=== PATIENT | female | born 1955 | race Caucasian/White ===

== ENCOUNTER 2020-04-21 11:43 | Emergency (ER) | payer MEDICARE, OTHER ==
[2020-04-21 20:01] LABS: SARS-CoV-2 MS2 Positive; SARS-CoV-2 N Gene Negative; SARS-CoV-2 S Gene Negative; SARS-CoV-2 by NAA Not Detected (NotDetected); SARS-CoV-2 orf1ab Negative
== END 2020-04-21 12:20 | disposition home or self-care (01) ==
LOC: ERS 11:43
DX: Z20.828 Contact with and (suspected) exposure to other viral communicable diseases (principal); F41.9 Anxiety disorder, unspecified
CPT/HCPCS: 87635; 99283; U0003

== ENCOUNTER 2020-05-17 11:49 | Emergency (ER) | payer MEDICARE ==
[2020-05-17 18:28] LABS: SARS-CoV-2 MS2 Positive; SARS-CoV-2 N Gene Positive; SARS-CoV-2 S Gene Positive; SARS-CoV-2 by NAA DETECTED (NotDetected); SARS-CoV-2 orf1ab Positive
== END 2020-05-17 12:37 | disposition home or self-care (01) ==
LOC: ERS 11:49
DX: U07.1 COVID-19 (principal)
CPT/HCPCS: 99283; U0003; 87635

== ENCOUNTER 2022-07-28 16:45 | Emergency (ER) | payer MEDICARE, OTHER ==
[2022-07-28 17:48] LABS: #Eosinphils 0.1 thou/uL (0.0-0.7); #Lymphocytes 2.9 thou/uL (1.20-3.40); #Monocytes 0.6 thou/uL (0.11-0.59); %Basophils 0.5 % (0.0-1.0); %Lymphocytes 43.9 % (21.0-51.0); %Monocytes 8.4 % (0.0-10.0); %Neutrophils 45.2 % (42.0-75.0); Hemoglobin 11.9 g/dL (12.0-16.0); Mean Corpuscular HGB CONC 33.5 g/dL (32.0-36.0); Mean Corpuscular Volume 95.4 fl (78.0-98.0); Mean Platelet Volume 8.2 fL (7.4-10.4); Platelet Count 248 10x3/uL (130-400); Red Blood Cell (RBC) Count 3.72 mill/uL (4.20-5.40); White Blood Cell (WBC) Count 6.7 10x3/uL (4.8-10.8)
[2022-07-28 18:08] LABS: ALT (SGPT) 16 U/L (8-55); AST (SGOT) 20 U/L (5-34); Albumin 4.1 g/dL (3.4-4.8); Alkaline Phosphatase 87 U/L (40-110); Anion Gap 12 mmol/L (10-20); BUN (Urea Nitrogen) 14 mg/dL (9.8-20.1); Bilirubin, Total 0.4 mg/dL (0.2-1.2); Calc. Creatinine Clearance 0 mL/min (70-130); Calcium 9.4 mg/dL (7.8-10.44); Carbon Dioxide 25 mmol/L (23-31); Chloride 104 mmol/L (98-107); Estimated GFR 88; Globulin 3.1 g/dL (2.4-3.5); Glucose 101 mg/dL (80-115); Potassium 3.9 mmol/L (3.5-5.1); Protein, Total 7.2 g/dL (5.8-8.1); Sodium 137 mmol/L (136-145)
== END 2022-07-28 19:50 | disposition home or self-care (01) ==
LOC: ERS 16:45
DX: R60.9 Edema, unspecified (principal)
CPT/HCPCS: 36415; 80053; 85025; 99283

== ENCOUNTER 2022-09-17 14:42 | Inpatient (IN) | payer MEDICARE ==
[2022-09-17 15:11] LABS: #Basophils 0.1 thou/uL (0.0-0.2); #Eosinphils 0.1 thou/uL (0.0-0.7); #Lymphocytes 2.5 thou/uL (1.20-3.40); #Monocytes 1.4 thou/uL (0.11-0.59); #Neutrophils 9.9 thou/uL (1.40-6.50); %Basophils 0.5 % (0.0-1.0); %Eosinophils 0.5 % (0.0-10.0); %Lymphocytes 18.1 % (21.0-51.0); %Monocytes 9.8 % (0.0-10.0); %Neutrophils 71.2 % (42.0-75.0); Hemoglobin 13.4 g/dL (12.0-16.0); Mean Corpuscular HGB CONC 33.9 g/dL (32.0-36.0); Mean Corpuscular Hemoglobin 31.6 pg (27.0-31.0); Mean Corpuscular Volume 93.2 fl (78.0-98.0); Mean Platelet Volume 7.1 fL (7.4-10.4); Platelet Count 310 10x3/uL (130-400); RBC Distribution Width 12.1 % (11.5-14.5); Red Blood Cell (RBC) Count 4.25 mill/uL (4.20-5.40); White Blood Cell (WBC) Count 13.8 10x3/uL (4.8-10.8)
[2022-09-17 15:24] LABS: PTT 25.6 sec (22.9-36.1); Prothrombin Time 14.2 sec (12.0-14.7)
[2022-09-17 15:25] LABS: INR-International Normal Ratio 1.1
[2022-09-17 15:26] LABS: ALT (SGPT) 26 U/L (8-55); AST (SGOT) 53 U/L (5-34); Albumin 3.8 g/dL (3.4-4.8); Alkaline Phosphatase 79 U/L (40-110); Anion Gap 15 mmol/L (10-20); BUN (Urea Nitrogen) 12 mg/dL (9.8-20.1); Bilirubin, Total 0.6 mg/dL (0.2-1.2); CK (CPK) 2108 U/L (29-168); Calc. Creatinine Clearance 0 mL/min (70-130); Calcium 9.4 mg/dL (7.8-10.44); Carbon Dioxide 23 mmol/L (23-31); Chloride 103 mmol/L (98-107); Estimated GFR 94; Globulin 3.5 g/dL (2.4-3.5); Glucose 99 mg/dL (80-115); Potassium 4.6 mmol/L (3.5-5.1); Protein, Total 7.3 g/dL (5.8-8.1); Sodium 136 mmol/L (136-145)
[2022-09-17 15:49] LABS: CKMB 4.2 ng/mL (0-6.6)
[2022-09-17 16:17] LABS: Bacteria/HPF None Seen HPF (None Seen); Bilirubin Negative (Negative); Blood, Urine 1+ (Negative); Glucose, Urine (Dipstick) Normal (Negative); Ketone, Urine 60 mg/dL (Negative); Leukocyte Negative Leu/uL (Negative); Nitrite Negative (Negative); Protein, Urine (Dipstick) 50 mg/dL (Neg-Trace); Squamous Epithelial None Seen HPF (0-3); Urobilinogen Normal mg/dL (Less than 2)
[2022-09-17 16:21] LABS: Clarity Cloudy (Clear)
[2022-09-17 18:36] LABS: Troponin I 0.039 ng/mL (< 0.028)
[2022-09-17] MEDS ORDERED: Acetaminophen 325 MG TAB ONE (18:48)
[2022-09-17] MEDS: Lactated Ringer's 1,000 ML IV SCH (19:04)
[2022-09-17] MEDS: Acetaminophen 325 MG TAB PO PRN (19:05)
[2022-09-17 20:48] LABS: Lactic Acid 1.7 mmol/L (0.5-2.2)
[2022-09-17 22:54] VITALS: BMI 35.0
[2022-09-18] MEDS: Levothyroxine Sodium 50 MCG TAB PO SCH (05:34)
[2022-09-18] MEDS: Lactated Ringer's 1,000 ML IV SCH (05:34)
[2022-09-18 06:51] LABS: #Eosinphils 0.3 thou/uL (0.0-0.7); #Monocytes 1.2 thou/uL (0.11-0.59); #Neutrophils 6.7 thou/uL (1.40-6.50); %Basophils 0.2 % (0.0-1.0); %Eosinophils 2.7 % (0.0-10.0); %Lymphocytes 26.6 % (21.0-51.0); %Monocytes 10.6 % (0.0-10.0); Hemoglobin 11.6 g/dL (12.0-16.0); Mean Corpuscular HGB CONC 34.3 g/dL (32.0-36.0); Mean Corpuscular Hemoglobin 32.1 pg (27.0-31.0); Mean Corpuscular Volume 93.4 fl (78.0-98.0); Mean Platelet Volume 7.1 fL (7.4-10.4); Platelet Count 236 10x3/uL (130-400); RBC Distribution Width 11.9 % (11.5-14.5); Red Blood Cell (RBC) Count 3.61 mill/uL (4.20-5.40); White Blood Cell (WBC) Count 11.1 10x3/uL (4.8-10.8)
[2022-09-18 07:16] LABS: Anion Gap 11 mmol/L (10-20); BUN (Urea Nitrogen) 10 mg/dL (9.8-20.1); CK (CPK) 1302 U/L (29-168); Calc. Creatinine Clearance 122 mL/min (70-130); Calcium 8.4 mg/dL (7.8-10.44); Carbon Dioxide 23 mmol/L (23-31); Chloride 105 mmol/L (98-107); Estimated GFR 101; Glucose 88 mg/dL (80-115); Potassium 3.5 mmol/L (3.5-5.1); Sodium 135 mmol/L (136-145)
[2022-09-18] MEDS: Aripiprazole 2 MG TAB PO SCH (08:16)
[2022-09-18] MEDS: Metolazone 2.5 MG TAB PO SCH (08:16)
[2022-09-18] MEDS: FLUoxetine HCl 20 MG CAP PO SCH (08:16)
[2022-09-18] MEDS ORDERED: traMADol HCl 50 MG TAB PO SCH (09:00)
[2022-09-18] MEDS: Propranolol HCl 20 MG TAB PO PRN (17:12)
[2022-09-18] MEDS: traMADol HCl 50 MG TAB PO PRN (18:59)
[2022-09-18] MEDS: Mirtazapine 15 MG Soltab PO SCH (20:54)
[2022-09-19 06:11] LABS: #Eosinphils 0.6 thou/uL (0.0-0.7); #Lymphocytes 2.8 thou/uL (1.20-3.40); #Neutrophils 5.2 thou/uL (1.40-6.50); %Basophils 0.3 % (0.0-1.0); %Eosinophils 5.8 % (0.0-10.0); %Monocytes 10.5 % (0.0-10.0); %Neutrophils 54.5 % (42.0-75.0); Hemoglobin 12.4 g/dL (12.0-16.0); Mean Corpuscular HGB CONC 33.6 g/dL (32.0-36.0); Mean Corpuscular Hemoglobin 31.2 pg (27.0-31.0); Mean Corpuscular Volume 92.8 fl (78.0-98.0); Mean Platelet Volume 7.2 fL (7.4-10.4); Platelet Count 261 10x3/uL (130-400); RBC Distribution Width 11.9 % (11.5-14.5); Red Blood Cell (RBC) Count 3.99 mill/uL (4.20-5.40); White Blood Cell (WBC) Count 9.6 10x3/uL (4.8-10.8)
[2022-09-19] MEDS: Levothyroxine Sodium 50 MCG TAB PO SCH (06:17)
[2022-09-19 06:27] LABS: ALT (SGPT) 22 U/L (8-55); AST (SGOT) 31 U/L (5-34); Albumin 3.2 g/dL (3.4-4.8); Alkaline Phosphatase 67 U/L (40-110); Anion Gap 13 mmol/L (10-20); BUN (Urea Nitrogen) 10 mg/dL (9.8-20.1); Bilirubin, Direct 0.2 mg/dL (0.1-0.3); Bilirubin, Total 0.4 mg/dL (0.2-1.2); CK (CPK) 608 U/L (29-168); Calc. Creatinine Clearance 112 mL/min (70-130); Carbon Dioxide 24 mmol/L (23-31); Chloride 99 mmol/L (98-107); Estimated GFR 99; Glucose 90 mg/dL (80-115); Magnesium 1.7 mg/dL (1.6-2.6); Potassium 3.5 mmol/L (3.5-5.1); Protein, Total 6.1 g/dL (5.8-8.1); Sodium 132 mmol/L (136-145)
[2022-09-19] MEDS: Aripiprazole 2 MG TAB PO SCH (09:59)
[2022-09-19] MEDS: FLUoxetine HCl 20 MG CAP PO SCH (09:59)
[2022-09-19] MEDS: Metolazone 2.5 MG TAB PO SCH (09:59)
[2022-09-19] MEDS: traMADol HCl 50 MG TAB PO PRN (21:41)
[2022-09-19] MEDS: Mirtazapine 15 MG Soltab PO SCH (21:43)
[2022-09-20 05:40] LABS: #Eosinphils 0.5 thou/uL (0.0-0.7); #Lymphocytes 2.5 thou/uL (1.20-3.40); #Neutrophils 4.4 thou/uL (1.40-6.50); %Basophils 0.1 % (0.0-1.0); %Eosinophils 5.5 % (0.0-10.0); %Monocytes 11.4 % (0.0-10.0); Hemoglobin 12.6 g/dL (12.0-16.0); Mean Corpuscular HGB CONC 34.7 g/dL (32.0-36.0); Mean Corpuscular Hemoglobin 32.3 pg (27.0-31.0); Mean Platelet Volume 7.3 fL (7.4-10.4); Platelet Count 276 10x3/uL (130-400); RBC Distribution Width 11.9 % (11.5-14.5); Red Blood Cell (RBC) Count 3.89 mill/uL (4.20-5.40); White Blood Cell (WBC) Count 8.4 10x3/uL (4.8-10.8)
[2022-09-20 05:56] LABS: Anion Gap 13 mmol/L (10-20); BUN (Urea Nitrogen) 13 mg/dL (9.8-20.1); Calc. Creatinine Clearance 98 mL/min (70-130); Calcium 8.9 mg/dL (7.8-10.44); Carbon Dioxide 26 mmol/L (23-31); Chloride 97 mmol/L (98-107); Estimated GFR 94; Glucose 109 mg/dL (80-115); Magnesium 1.9 mg/dL (1.6-2.6); Potassium 4.1 mmol/L (3.5-5.1); Sodium 132 mmol/L (136-145)
[2022-09-20] MEDS: Levothyroxine Sodium 50 MCG TAB PO SCH (05:58)
[2022-09-20] MEDS: traMADol HCl 50 MG TAB PO PRN ×3 (09:22→22:17)
[2022-09-20] MEDS: Aripiprazole 2 MG TAB PO SCH (09:22)
[2022-09-20] MEDS: FLUoxetine HCl 20 MG CAP PO SCH (09:22)
[2022-09-20] MEDS: Metolazone 2.5 MG TAB PO SCH (09:22)
[2022-09-20] MEDS: Ondansetron PF 4 MG/2 ML Vial IVP PRN (19:00)
[2022-09-20] MEDS: Mirtazapine 15 MG Soltab PO SCH (20:35)
[2022-09-21] MEDS: Levothyroxine Sodium 50 MCG TAB PO SCH (05:59)
[2022-09-21 06:32] LABS: #Eosinphils 0.3 thou/uL (0.0-0.7); #Lymphocytes 2.7 thou/uL (1.20-3.40); #Monocytes 0.9 thou/uL (0.11-0.59); %Basophils 0.1 % (0.0-1.0); %Eosinophils 3.9 % (0.0-10.0); %Monocytes 9.8 % (0.0-10.0); %Neutrophils 56.2 % (42.0-75.0); Hemoglobin 13.3 g/dL (12.0-16.0); Mean Corpuscular HGB CONC 35.1 g/dL (32.0-36.0); Mean Corpuscular Hemoglobin 32.8 pg (27.0-31.0); Mean Corpuscular Volume 93.4 fl (78.0-98.0); Mean Platelet Volume 7.2 fL (7.4-10.4); Platelet Count 310 10x3/uL (130-400); Red Blood Cell (RBC) Count 4.06 mill/uL (4.20-5.40); White Blood Cell (WBC) Count 8.9 10x3/uL (4.8-10.8)
[2022-09-21 06:47] LABS: Anion Gap 15 mmol/L (10-20); BUN (Urea Nitrogen) 13 mg/dL (9.8-20.1); Calc. Creatinine Clearance 95 mL/min (70-130); Calcium 9.4 mg/dL (7.8-10.44); Carbon Dioxide 23 mmol/L (23-31); Chloride 97 mmol/L (98-107); Estimated GFR 91; Glucose 107 mg/dL (80-115); Magnesium 1.8 mg/dL (1.6-2.6); Sodium 130 mmol/L (136-145)
[2022-09-21] MEDS: Metolazone 2.5 MG TAB PO SCH (08:59)
[2022-09-21] MEDS: Aripiprazole 2 MG TAB PO SCH (08:59)
[2022-09-21] MEDS: FLUoxetine HCl 20 MG CAP PO SCH (08:59)
[2022-09-21] MEDS ORDERED: Furosemide 40 MG/4 ML VIAL SLOW IVP SCH (17:00)
[2022-09-21] MEDS: Mirtazapine 15 MG Soltab PO SCH (20:09)
[2022-09-21] MEDS: Ondansetron PF 4 MG/2 ML Vial IVP PRN (20:09)
[2022-09-22] MEDS: Levothyroxine Sodium 50 MCG TAB PO SCH (05:28)
[2022-09-22 06:03] LABS: #Eosinphils 0.2 thou/uL (0.0-0.7); #Lymphocytes 2.3 thou/uL (1.20-3.40); #Monocytes 1.2 thou/uL (0.11-0.59); #Neutrophils 7.6 thou/uL (1.40-6.50); %Basophils 0.3 % (0.0-1.0); %Eosinophils 1.5 % (0.0-10.0); %Lymphocytes 20.3 % (21.0-51.0); %Monocytes 10.6 % (0.0-10.0); %Neutrophils 67.3 % (42.0-75.0); Hemoglobin 15.1 g/dL (12.0-16.0); Mean Corpuscular HGB CONC 34.8 g/dL (32.0-36.0); Mean Platelet Volume 7.2 fL (7.4-10.4); Platelet Count 353 10x3/uL (130-400); Red Blood Cell (RBC) Count 4.71 mill/uL (4.20-5.40); White Blood Cell (WBC) Count 11.3 10x3/uL (4.8-10.8)
[2022-09-22 06:39] LABS: ALT (SGPT) 43 U/L (8-55); AST (SGOT) 38 U/L (5-34); Albumin 4.1 g/dL (3.4-4.8); Alkaline Phosphatase 91 U/L (40-110); Anion Gap 15 mmol/L (10-20); BUN (Urea Nitrogen) 18 mg/dL (9.8-20.1); Bilirubin, Total 0.4 mg/dL (0.2-1.2); Calc. Creatinine Clearance 85 mL/min (70-130); Calcium 10.1 mg/dL (7.8-10.44); Carbon Dioxide 26 mmol/L (23-31); Chloride 93 mmol/L (98-107); Estimated GFR 79; Globulin 3.8 g/dL (2.4-3.5); Glucose 127 mg/dL (80-115); Magnesium 1.9 mg/dL (1.6-2.6); Potassium 4.6 mmol/L (3.5-5.1); Protein, Total 7.9 g/dL (5.8-8.1); Sodium 129 mmol/L (136-145)
[2022-09-22] MEDS: FLUoxetine HCl 20 MG CAP PO SCH (08:29)
[2022-09-22] MEDS: Metolazone 2.5 MG TAB PO SCH (08:30)
[2022-09-22] MEDS: Aripiprazole 2 MG TAB PO SCH (08:30)
[2022-09-22] MEDS ORDERED: Furosemide 40 MG/4 ML VIAL SLOW IVP SCH (13:45)
[2022-09-22] MEDS: traMADol HCl 50 MG TAB PO PRN (14:02)
[2022-09-22] MEDS: Ondansetron PF 4 MG/2 ML Vial IVP PRN (14:10)
[2022-09-22] MEDS: Sodium Chloride 1 GM TAB PO SCH ×2 (14:56→20:29)
[2022-09-22] MEDS: Mirtazapine 15 MG Soltab PO SCH (20:33)
[2022-09-22] MEDS: Melatonin 3 MG TAB PO PRN (23:49)
[2022-09-23] MEDS: Ondansetron PF 4 MG/2 ML Vial IVP PRN ×2 (02:15→13:19)
[2022-09-23] MEDS: Propranolol HCl 20 MG TAB PO PRN (05:23)
[2022-09-23] MEDS: traMADol HCl 50 MG TAB PO PRN (05:23)
[2022-09-23 05:56] LABS: #Eosinphils 0.1 thou/uL (0.0-0.7); #Lymphocytes 2.8 thou/uL (1.20-3.40); #Monocytes 1.2 thou/uL (0.11-0.59); %Basophils 0.2 % (0.0-1.0); %Eosinophils 0.5 % (0.0-10.0); %Lymphocytes 21.3 % (21.0-51.0); %Neutrophils 68.9 % (42.0-75.0); Hemoglobin 15.2 g/dL (12.0-16.0); Mean Corpuscular Volume 91.5 fl (78.0-98.0); Mean Platelet Volume 7.5 fL (7.4-10.4); Platelet Count 379 10x3/uL (130-400)
[2022-09-23 06:15] LABS: Anion Gap 17 mmol/L (10-20); BUN (Urea Nitrogen) 28 mg/dL (9.8-20.1); Calc. Creatinine Clearance 76 mL/min (70-130); Calcium 9.8 mg/dL (7.8-10.44); Carbon Dioxide 25 mmol/L (23-31); Chloride 89 mmol/L (98-107); Estimated GFR 69; Glucose 146 mg/dL (80-115); Magnesium 1.8 mg/dL (1.6-2.6); Potassium 4.3 mmol/L (3.5-5.1); Sodium 127 mmol/L (136-145)
[2022-09-23] MEDS: Sodium Chloride 1 GM TAB PO SCH ×3 (08:34→20:04)
[2022-09-23] MEDS: Aripiprazole 2 MG TAB PO SCH (08:34)
[2022-09-23] MEDS ORDERED: Furosemide 20 MG TAB PO SCH (09:00)
[2022-09-23] MEDS ORDERED: PARoxetine 20 MG TAB PO SCH (09:00)
[2022-09-23] MEDS: Sodium Chloride 0.9% 500 ML IV SCH (14:53)
[2022-09-23] MEDS: Carvedilol 3.125 MG TAB PO SCH (18:20)
[2022-09-23] MEDS: Mirtazapine 15 MG Soltab PO SCH (20:04)
[2022-09-23 22:24] LABS: Anion Gap 15 mmol/L (10-20); BUN (Urea Nitrogen) 29 mg/dL (9.8-20.1); Calc. Creatinine Clearance 77 mL/min (70-130); Carbon Dioxide 27 mmol/L (23-31); Chloride 90 mmol/L (98-107); Potassium 3.6 mmol/L (3.5-5.1); Sodium 128 mmol/L (136-145)
[2022-09-23 22:25] LABS: Calcium 9.7 mg/dL (7.8-10.44); Estimated GFR 70; Glucose 122 mg/dL (80-115)
[2022-09-24] MEDS: Sodium Chloride 0.9% 500 ML IV SCH (01:01)
[2022-09-24 01:55] LABS: Bacteria/HPF 3+ HPF (None Seen); Bilirubin Negative (Negative); Blood, Urine Negative (Negative); CAUTI Indications for Culture Dysuria,urgency,freq; Clarity Clear (Clear); Glucose, Urine (Dipstick) Normal (Negative); Ketone, Urine Negative (Negative); Leukocyte 25 Leu/uL (Negative); Mucous/LPF Rare LPF (<2+); Nitrite Negative (Negative); Protein, Urine (Dipstick) 10 mg/dL (Neg-Trace); RBC/HPF 0-3 HPF (0-3); Renal Epithelial 0-3 HPF (None Seen); Specific Gravity, Urine 1.019 (1.002-1.036); Squamous Epithelial 0-3 HPF (0-3); Urobilinogen Normal mg/dL (Less than 2); pH, Urine 6.5 (5.0-9.0)
[2022-09-24 01:59] LABS: Urine Culture Reflex Yes Yes
[2022-09-24 05:43] LABS: Mean Corpuscular HGB CONC 35.2 g/dL (32.0-36.0); Mean Corpuscular Hemoglobin 32.1 pg (27.0-31.0); Mean Corpuscular Volume 91.1 fl (78.0-98.0); Mean Platelet Volume 7.3 fL (7.4-10.4); Platelet Count 340 10x3/uL (130-400); RBC Distribution Width 11.9 % (11.5-14.5); Red Blood Cell (RBC) Count 4.05 mill/uL (4.20-5.40); White Blood Cell (WBC) Count 12.9 10x3/uL (4.8-10.8)
[2022-09-24 05:46] LABS: #Eosinphils 0.1 thou/uL (0.0-0.7); #Lymphocytes 3.6 thou/uL (1.20-3.40); #Monocytes 1.3 thou/uL (0.11-0.59); #Neutrophils 8.2 thou/uL (1.40-6.50); %Basophils 0.2 % (0.0-1.0); %Lymphocytes 26.9 % (21.0-51.0); %Monocytes 9.9 % (0.0-10.0); Hemoglobin 12.7 g/dL (12.0-16.0); Mean Corpuscular HGB CONC 34.7 g/dL (32.0-36.0); Mean Corpuscular Hemoglobin 31.6 pg (27.0-31.0); Mean Corpuscular Volume 91.1 fl (78.0-98.0); Mean Platelet Volume 7.5 fL (7.4-10.4); Platelet Count 333 10x3/uL (130-400); RBC Distribution Width 11.8 % (11.5-14.5); Red Blood Cell (RBC) Count 4.02 mill/uL (4.20-5.40); White Blood Cell (WBC) Count 13.2 10x3/uL (4.8-10.8)
[2022-09-24 06:09] LABS: ALT (SGPT) 36 U/L (8-55); AST (SGOT) 28 U/L (5-34); Albumin 3.7 g/dL (3.4-4.8); Alkaline Phosphatase 73 U/L (40-110); Anion Gap 14 mmol/L (10-20); BUN (Urea Nitrogen) 24 mg/dL (9.8-20.1); Bilirubin, Total 0.6 mg/dL (0.2-1.2); Calc. Creatinine Clearance 88 mL/min (70-130); Calcium 8.9 mg/dL (7.8-10.44); Carbon Dioxide 25 mmol/L (23-31); Chloride 91 mmol/L (98-107); Estimated GFR 83; Glucose 104 mg/dL (80-115); Magnesium 1.8 mg/dL (1.6-2.6); Potassium 3.5 mmol/L (3.5-5.1); Protein, Total 6.7 g/dL (5.8-8.1); Sodium 126 mmol/L (136-145)
[2022-09-24 06:23] LABS: Free T4 (Free Thyroxine) 1.13 ng/dL (0.70-1.48); T4 7.9 ug/dL (4.87-11.72); Thyroid Stimulating Hormone 5.9908 uIU/mL (0.35-4.94)
[2022-09-24] MEDS ORDERED: Potassium Chloride 20 MEQ TAB PO SCH (07:00)
[2022-09-24] MEDS: Sodium Chloride 1 GM TAB PO SCH ×3 (09:23→21:19)
[2022-09-24] MEDS: Aripiprazole 2 MG TAB PO SCH (09:23)
[2022-09-24] MEDS: Carvedilol 3.125 MG TAB PO SCH ×2 (09:24→17:09)
[2022-09-24 14:19] LABS: Anion Gap 16 mmol/L (10-20); BUN (Urea Nitrogen) 24 mg/dL (9.8-20.1); Calc. Creatinine Clearance 83 mL/min (70-130); Calcium 9.4 mg/dL (7.8-10.44); Carbon Dioxide 22 mmol/L (23-31); Chloride 94 mmol/L (98-107); Estimated GFR 77; Glucose 180 mg/dL (80-115); Sodium 128 mmol/L (136-145)
[2022-09-24] MEDS: Ondansetron PF 4 MG/2 ML Vial IVP PRN ×2 (14:22→21:20)
[2022-09-24] MEDS: traMADol HCl 50 MG TAB PO PRN ×2 (14:57→21:19)
[2022-09-24] MEDS: Mirtazapine 15 MG Soltab PO SCH (21:19)
[2022-09-25 05:30] LABS: Anion Gap 13 mmol/L (10-20); BUN (Urea Nitrogen) 22 mg/dL (9.8-20.1); Calc. Creatinine Clearance 95 mL/min (70-130); Carbon Dioxide 25 mmol/L (23-31); Chloride 96 mmol/L (98-107); Potassium 3.8 mmol/L (3.5-5.1); Sodium 130 mmol/L (136-145)
[2022-09-25 05:31] LABS: Calcium 9.2 mg/dL (7.8-10.44); Estimated GFR 91; Glucose 109 mg/dL (80-115); Magnesium 1.7 mg/dL (1.6-2.6)
[2022-09-25 05:32] LABS: #Eosinphils 0.1 thou/uL (0.0-0.7); #Lymphocytes 3.3 thou/uL (1.20-3.40); #Monocytes 1.2 thou/uL (0.11-0.59); #Neutrophils 7.2 thou/uL (1.40-6.50); %Basophils 0.2 % (0.0-1.0); %Eosinophils 1.1 % (0.0-10.0); %Lymphocytes 28.2 % (21.0-51.0); %Monocytes 9.8 % (0.0-10.0); %Neutrophils 60.7 % (42.0-75.0); Hemoglobin 12.1 g/dL (12.0-16.0); Hemoglobin 12.6 g/dL (12.0-16.0); Mean Corpuscular HGB CONC 33.7 g/dL (32.0-36.0); Mean Corpuscular HGB CONC 34.6 g/dL (32.0-36.0); Mean Corpuscular Hemoglobin 30.8 pg (27.0-31.0); Mean Corpuscular Hemoglobin 32.2 pg (27.0-31.0); Mean Corpuscular Volume 91.5 fl (78.0-98.0); Mean Corpuscular Volume 92.9 fl (78.0-98.0); Mean Platelet Volume 7.5 fL (7.4-10.4); Mean Platelet Volume 7.7 fL (7.4-10.4); Platelet Count 326 10x3/uL (130-400); Platelet Count 334 10x3/uL (130-400); RBC Distribution Width 11.9 % (11.5-14.5); Red Blood Cell (RBC) Count 3.92 mill/uL (4.20-5.40); Red Blood Cell (RBC) Count 3.94 mill/uL (4.20-5.40); White Blood Cell (WBC) Count 11.8 10x3/uL (4.8-10.8)
[2022-09-25] MEDS: Aripiprazole 2 MG TAB PO SCH (08:06)
[2022-09-25] MEDS: Carvedilol 3.125 MG TAB PO SCH ×2 (08:06→16:12)
[2022-09-25] MEDS: Sodium Chloride 1 GM TAB PO SCH ×3 (08:07→21:27)
[2022-09-25] MEDS ORDERED: Potassium Chloride 20 MEQ TAB PO SCH (14:00)
[2022-09-25] MEDS ORDERED: Magnesium Oxide 400 MG TAB PO SCH (14:00)
[2022-09-25] MEDS: Ondansetron PF 4 MG/2 ML Vial IVP PRN ×2 (16:19→22:20)
[2022-09-25] MEDS: Mirtazapine 15 MG Soltab PO SCH (21:27)
[2022-09-26] MEDS ORDERED: Potassium Chloride 20 MEQ TAB PO SCH (08:00)
[2022-09-26] MEDS: Sodium Chloride 1 GM TAB PO SCH ×3 (08:23→21:40)
[2022-09-26] MEDS: Aripiprazole 2 MG TAB PO SCH (08:23)
[2022-09-26] MEDS: Carvedilol 3.125 MG TAB PO SCH ×3 (08:23→17:11)
[2022-09-26] MEDS: Magnesium Oxide 400 MG TAB PO SCH (08:24)
[2022-09-26 11:13] LABS: Albumin 3.5 g/dL (3.4-4.8); Anion Gap 12 mmol/L (10-20); BUN (Urea Nitrogen) 18 mg/dL (9.8-20.1); BUN/Creatinine Ratio 22.78; Calc. Creatinine Clearance 88 mL/min (70-130); Calcium 9.2 mg/dL (7.8-10.44); Carbon Dioxide 25 mmol/L (23-31); Chloride 102 mmol/L (98-107); Estimated GFR 83; Glucose 127 mg/dL (80-115); Magnesium 1.7 mg/dL (1.6-2.6); Phosphorus 2.5 mg/dL (2.3-4.7); Potassium 4.5 mmol/L (3.5-5.1); Sodium 134 mmol/L (136-145)
[2022-09-26] MEDS: Mirtazapine 15 MG Soltab PO SCH (21:40)
[2022-09-26] MEDS: traMADol HCl 50 MG TAB PO PRN (21:44)
[2022-09-27 06:28] LABS: Albumin 3.3 g/dL (3.4-4.8); Anion Gap 11 mmol/L (10-20); BUN (Urea Nitrogen) 13 mg/dL (9.8-20.1); BUN/Creatinine Ratio 18.31; Calc. Creatinine Clearance 98 mL/min (70-130); Calcium 8.7 mg/dL (7.8-10.44); Carbon Dioxide 23 mmol/L (23-31); Chloride 102 mmol/L (98-107); Estimated GFR 94; Glucose 103 mg/dL (80-115); Phosphorus 2.8 mg/dL (2.3-4.7); Potassium 3.9 mmol/L (3.5-5.1); Sodium 132 mmol/L (136-145)
[2022-09-27] MEDS: Sodium Chloride 1 GM TAB PO SCH ×3 (08:01→21:51)
[2022-09-27] MEDS: Magnesium Oxide 400 MG TAB PO SCH (08:01)
[2022-09-27] MEDS: Aripiprazole 2 MG TAB PO SCH (08:01)
[2022-09-27] MEDS: Potassium Chloride 10 MEQ TAB PO SCH (08:01)
[2022-09-27] MEDS: Mirtazapine 15 MG Soltab PO SCH (21:51)
[2022-09-27] MEDS: traMADol HCl 50 MG TAB PO PRN (21:52)
[2022-09-27] MEDS: Melatonin 3 MG TAB PO PRN (21:52)
[2022-09-28 06:40] LABS: Anion Gap 10 mmol/L (10-20); BUN (Urea Nitrogen) 12 mg/dL (9.8-20.1); Calc. Creatinine Clearance 99 mL/min (70-130); Calcium 8.9 mg/dL (7.8-10.44); Carbon Dioxide 23 mmol/L (23-31); Chloride 104 mmol/L (98-107); Estimated GFR 96; Glucose 96 mg/dL (80-115); Potassium 3.9 mmol/L (3.5-5.1); Sodium 133 mmol/L (136-145)
[2022-09-28] MEDS: Potassium Chloride 10 MEQ TAB PO SCH (09:14)
[2022-09-28] MEDS: Sodium Chloride 1 GM TAB PO SCH ×3 (09:14→21:32)
[2022-09-28] MEDS: Magnesium Oxide 400 MG TAB PO SCH (09:14)
[2022-09-28] MEDS: Aripiprazole 2 MG TAB PO SCH (09:14)
[2022-09-28] MEDS: Mirtazapine 15 MG Soltab PO SCH (21:31)
[2022-09-28] MEDS: traMADol HCl 50 MG TAB PO PRN (21:32)
[2022-09-28] MEDS: Melatonin 3 MG TAB PO PRN (21:32)
[2022-09-29 06:29] LABS: Anion Gap 11 mmol/L (10-20); BUN (Urea Nitrogen) 9 mg/dL (9.8-20.1); Calc. Creatinine Clearance 102 mL/min (70-130); Calcium 8.7 mg/dL (7.8-10.44); Carbon Dioxide 23 mmol/L (23-31); Chloride 105 mmol/L (98-107); Estimated GFR 97; Glucose 98 mg/dL (80-115); Potassium 4.1 mmol/L (3.5-5.1); Sodium 135 mmol/L (136-145)
[2022-09-29] MEDS: Potassium Chloride 10 MEQ TAB PO SCH (09:08)
[2022-09-29] MEDS: Aripiprazole 2 MG TAB PO SCH (09:08)
[2022-09-29] MEDS: Magnesium Oxide 400 MG TAB PO SCH (09:09)
[2022-09-29] MEDS: Sodium Chloride 1 GM TAB PO SCH ×3 (09:09→20:09)
[2022-09-29] MEDS: Ondansetron PF 4 MG/2 ML Vial IVP PRN (17:46)
[2022-09-29] MEDS: Melatonin 3 MG TAB PO PRN (20:08)
[2022-09-29] MEDS: Mirtazapine 15 MG Soltab PO SCH (20:10)
[2022-09-30 06:44] LABS: Anion Gap 11 mmol/L (10-20); BUN (Urea Nitrogen) 8 mg/dL (9.8-20.1); Calc. Creatinine Clearance 102 mL/min (70-130); Calcium 8.8 mg/dL (7.8-10.44); Carbon Dioxide 23 mmol/L (23-31); Chloride 105 mmol/L (98-107); Estimated GFR 97; Glucose 98 mg/dL (80-115); Potassium 4.1 mmol/L (3.5-5.1); Sodium 135 mmol/L (136-145)
[2022-09-30] MEDS: Aripiprazole 2 MG TAB PO SCH (08:39)
[2022-09-30] MEDS: Sodium Chloride 1 GM TAB PO SCH ×3 (08:39→20:40)
[2022-09-30] MEDS: Potassium Chloride 10 MEQ TAB PO SCH (08:40)
[2022-09-30] MEDS: Magnesium Oxide 400 MG TAB PO SCH (08:40)
[2022-09-30] MEDS: Melatonin 3 MG TAB PO PRN (20:39)
[2022-09-30] MEDS: Mirtazapine 15 MG Soltab PO SCH (20:40)
[2022-10-01] MEDS: Acetaminophen 325 MG TAB PO PRN (05:20)
[2022-10-01] MEDS: Sodium Chloride 1 GM TAB PO SCH ×2 (08:28→14:17)
[2022-10-01] MEDS: Magnesium Oxide 400 MG TAB PO SCH (08:28)
[2022-10-01] MEDS: Potassium Chloride 10 MEQ TAB PO SCH (08:28)
[2022-10-01] MEDS: Aripiprazole 2 MG TAB PO SCH (08:29)
[2022-10-01 16:19] VITALS: BP 131/78; TEMP 97.3
== END 2022-10-01 17:38 | DRG 643 ==
LOC: ERS 14:42 → ERHOLD 17:15 → T4-A 22:43 → NEURO 09-18 17:59 → OBSVTOIN 09-19 01:03 → 2NO 09-24 17:09 → T4-A 09-26 01:20
PROVIDERS: ADMIT Internal Medicine; ATTEND Internal Medicine
DX: E22.2 Syndrome of inappropriate secretion of antidiuretic hormone (principal); G93.41 Metabolic encephalopathy; M62.82 Rhabdomyolysis; I50.32 Chronic diastolic (congestive) heart failure; N39.0 Urinary tract infection, site not specified; B95.2 Enterococcus as the cause of diseases classified elsewhere; T43.225A Adverse effect of selective serotonin reuptake inhibitors, initial encounter; T50.2X5A Adverse effect of carbonic-anhydrase inhibitors, benzothiadiazides and other diuretics, initial encounter; E87.5 Hyperkalemia; M79.7 Fibromyalgia; F41.9 Anxiety disorder, unspecified; F32.A Depression, unspecified; R60.0 Localized edema; I87.2 Venous insufficiency (chronic) (peripheral); Z60.2 Problems related to living alone; E87.6 Hypokalemia; E83.42 Hypomagnesemia; Z88.6 Allergy status to analgesic agent; Z79.899 Other long term (current) drug therapy
CPT/HCPCS: 36415; 36416; 51701; 70450; 71045; 72125; 72170; 80048; 80053; 80069; 80076; 81001; 81003; 81015; 82550; 82553; 83605; 83735; 83930; 83935; 84300; 84436; 84439; 84443; 84484; 85025; 85610; 85730; 87040; 87077; 87086; 87186; 93005; 93306; 93880; 93970; 95712; 95819; 95957; 96360; 96372; G0378; J1650; J1940; J2405; J7050; J7120

== ENCOUNTER 2023-03-13 12:14 | Emergency (ER) | payer MEDICARE ==
[2023-03-13 13:02] LABS: #Basophils 0.1 thou/uL (0.0-0.2); #Eosinphils 0.2 thou/uL (0.0-0.7); #Monocytes 0.6 thou/uL (0.11-0.59); #Neutrophils 4.3 thou/uL (1.40-6.50); %Basophils 0.6 % (0.0-1.0); %Eosinophils 2.6 % (0.0-10.0); %Monocytes 7.2 % (0.0-10.0); %Neutrophils 56.2 % (42.0-75.0); Hematocrit 37.6 % (36.0-47.0); Hemoglobin 12.4 g/dL (12.0-16.0); Mean Corpuscular Volume 90.8 fl (78.0-98.0); Mean Platelet Volume 10.1 fL (7.4-10.4); Platelet Count 350 10x3/uL (130-400); RBC Distribution Width 13.2 % (11.5-14.5); Red Blood Cell (RBC) Count 4.14 mill/uL (4.20-5.40); White Blood Cell (WBC) Count 7.7 10x3/uL (4.8-10.8)
[2023-03-13 13:24] LABS: ALT (SGPT) 25 U/L (8-55); AST (SGOT) 27 U/L (5-34); Albumin 4.5 g/dL (3.4-4.8); Alkaline Phosphatase 90 U/L (40-110); Anion Gap 16 mmol/L (10-20); BUN (Urea Nitrogen) 24 mg/dL (9.8-20.1); Bilirubin, Total 0.3 mg/dL (0.2-1.2); Calc. Creatinine Clearance 0 mL/min (70-130); Calcium 9.9 mg/dL (7.8-10.44); Carbon Dioxide 26 mmol/L (23-31); Chloride 102 mmol/L (98-107); Estimated GFR 72; Globulin 2.8 g/dL (2.4-3.5); Glucose 121 mg/dL (80-115); Lipase 14 U/L (8-78); Potassium 3.8 mmol/L (3.5-5.1); Protein, Total 7.3 g/dL (5.8-8.1); Sodium 140 mmol/L (136-145)
[2023-03-13 13:28] LABS: Troponin I Less than 0.010 ng/mL (< 0.028)
[2023-03-13] MEDS ORDERED: Iopamidol-370 76% 500 ML MDV (1 ML CHARGE) ONE (13:32)
[2023-03-13 18:38] LABS: Acetaminophen Less than 10 mcg/mL (10.0-30.0); Alcohol Less than 10.0 mg/dL (Less than 10); Salicylate Less than 8.0 mg/dL (15.0-30.0)
[2023-03-13 19:16] LABS: Bilirubin Negative (Negative); Blood, Urine Negative (Negative); CAUTI Indications for Culture Alt mental st,lethar; Clarity Clear (Clear); Glucose, Urine (Dipstick) Normal (Negative); Ketone, Urine Negative (Negative); Leukocyte Negative Leu/uL (Negative); Nitrite Negative (Negative); Protein, Urine (Dipstick) 20 mg/dL (Neg-Trace); RBC/HPF 0-3 HPF (0-3); Squamous Epithelial 21-50 HPF (0-3); Urobilinogen Normal mg/dL (Less than 2); WBC/HPF 0-3 HPF (0-3); pH, Urine 7.5 (5.0-9.0)
[2023-03-13 19:17] LABS: Bacteria/HPF 1+ HPF (None Seen); Specific Gravity, Urine Greater than 1.060 (1.002-1.036)
[2023-03-13 19:18] LABS: Amphetamine Not Detected (NotDetected); Barbiturates Screen Not Detected (NotDetected); Benzodiazepine Screen Not Detected (NotDetected); Cocaine Metabolite Screen Not Detected (NotDetected); Methadone Not Detected (NotDetected); Methamphetamine Not Detected (NotDetected); Opiate Screen Not Detected (NotDetected); Oxycodone Screen Not Detected (NotDetected); Phencyclidine (PCP) Not Detected (NotDetected); THC/Cannabinoid Screen Not Detected (NotDetected); Tricyclic Screen Not Detected (NotDetected); Urine Culture Reflex No No
[2023-03-13] MEDS ORDERED: cefTRIAXone (ROCEPHIN) 1 GM VIAL ONE (21:25)
[2023-03-14] MEDS ORDERED: Ondansetron ODT 4 MG TAB ONE (04:25)
== END 2023-03-14 09:25 ==
LOC: ERS 12:14
DX: R45.851 Suicidal ideations (principal); N39.0 Urinary tract infection, site not specified
CPT/HCPCS: 36415; 71045; 74177; 80053; 80306; 80307; 81001; 83690; 84443; 84484; 85025; 93005; 96374; J0696; Q0162; Q9967